=== PATIENT | male | born 1975 | race Caucasian/White ===

== ENCOUNTER 2018-12-21 15:44 | Inpatient (IN) ==
[2018-12-21] MEDS ORDERED: SALINE LOCK IV FLUID XX ONE (22:41)
[2018-12-21] MEDS ORDERED: VANCOMYCIN IV PER PHARMACY MISC SCH (22:45)
[2018-12-21 23:42] LABS: HEMATOCRIT 36.5 % (42.0-52.0); HEMOGLOBIN 12.8 g/dL (14.0-18.0); MCH 33.9 PG (27-31); MCHC 35.1 g/dL (33-37); MCV 96.6 FL (81-99); RBC 3.78 XMIL (4.7-6.1); RDW 12.1 % (11.5-14.5); WBC 6.45 X1000 (4.8-10.8)
[2018-12-21 23:43] LABS: BASO# 0.01 X1000 (0.0-0.2); BASO% 0.2 % (0.0-0.8); EOS# 0.23 X1000 (0.0-0.7); EOS% 3.6 % (0.0-10.0); LYMPH# 1.82 X1000 (1.2-3.4); LYMPH% 28.2 % (20.5-51.1); MONO# 0.89 X1000 (0.11-0.59); MONO% 13.8 % (1.7-9.3); MPV 10.1 FL (7.4-10.4); NEUT% 54.2 % (42.2-75.2); PLT 182 X1000 (130-400)
[2018-12-22 00:03] LABS: AGAP 11; ALB/GLOB RATIO 1.6; ALBUMIN 3.9 g/dL (3.5-5.0); ALKALINE PHOSPHATASE 81 U/L (32-122); BUN 19 mg/dL (8-22); CHLORIDE 99 mmol/L (98-107); COSMO 276; CREATININE 0.8 mg/dL (0.7-1.2); ESTIMATED GFR > 60; GLUCOSE 104 mg/dL (70-104); GOT 10 U/L (10-34); GPT 13 U/L (10-44); POTASSIUM 4.2 mmol/L (3.5-5.1); SODIUM 137 mmol/L (136-145); TCO2 27 mmol/L (25-35); TOTAL BILIRUBIN 0.41 mg/dL (0.20-1.00); TOTAL PROTEIN 6.3 g/dL (6.3-8.3)
[2018-12-22] MEDS: ZOSYN 3.375 GM in NS 50 ML IV SCH ×3 (00:08→10:13)
[2018-12-22] MEDS ORDERED: VANCOMYCIN 2,000 MG in NS 500 ML IV ONE (01:00)
[2018-12-22] MEDS: NORCO-5 PO PRN ×2 (04:43→10:17)
[2018-12-22 08:36] VITALS: BP 101/83
--- NOTE | 2018-12-22 09:39 | PROGRESS NOTE ---
DATE: 12/22/2018 SUBJECTIVE: Mr. Ashley is a 43-year-old white gentleman, had crushing injury to several toes on the left side. The skin is turning black now and he has cellulitis. PLAN: We will continue the IV antibiotics, get a surgical consult for the injuries on the toes. cc: Zenon Stout MD
--- NOTE | 2018-12-22 10:01 | HISTORY AND PHYSICAL ---
HISTORY: Mr. Ashley on December 17 Dr. Olson related injury on his left foot. He had lacerations on several toes. He was seen in the emergency room at that particular day. X-rays were negative for fractures. He was prescribed clindamycin. It continued to get worse. I saw him yesterday in the office, had significant cellulitis hence he his admit. PAST SURGICAL HISTORY: Reveals history of back surgery. Appendicectomy. Surgery for GERD and hiatal hernia. He also had right ankle surgery. PERSONAL HISTORY: He has history of alcohol dependence as well as drug dependence. He has used illegal drugs in the past. However, at present, he says he is not using anything. No pain medication. ALLERGIES: He has an allergy to moxifloxacin . REVIEW OF SYSTEMS: He has swelling and pain in the left foot and the left toes. PHYSICAL EXAMINATION: Patient is alert. VITAL SIGNS: Temperature normal, pulse 84 per minute, respiratory rate 18 per minute, blood pressure 101/83. HEENT: Head normocephalic, pupils PERRLA. Fundus examination normal. NECK: Supple JVP normal ENT: ENT examination unremarkable. There is no evidence of lymphadenopathy, thyroid enlargement, pedal edema, calf tenderness, anemia, cyanosis or clubbing. PMI in the normal position. EXTREMITIES: Pedal pulses well felt. He has edema with the redness and swelling on the left foot with crushing injury on the left multiple toes with some black tissue, necrotic tissues. HEART: Sounds normal. No murmur gallop or rub noted. LUNGS: Clear. ABDOMEN: Soft, nondistended. Hernial orifices normal. No guarding, rigidity, free fluid, masses, or organomegaly. Bowel sounds normal. RECTAL: Deferred. [employer]: Cranial nerves motor and sensory system examination unremarkable. Deep tendon reflexes normal. Plantars downgoing. Skull and spine examination normal for age. No cerebellar signs or signs of meningeal irritation. Sensory and motor system unremarkable. CLINICAL IMPRESSION: Severe cellulitis following injury to multiple toes. Cellulitis is affecting the toes as well as the left foot. I will give him vancomycin and Zosyn at the present time. We will get a surgical consult for further management. cc: Zenon Stout MD
[2018-12-22] MEDS ORDERED: VANCOMYCIN 1,500 MG in NS 250 ML IV SCH (13:00)
--- NOTE | 2018-12-22 23:24 | DISCHARGE SUMMARY ---
ADMISSION DATE: 12/21/2018 DISCHARGE DATE: 12/22/2018 HOSPITAL COURSE: Mr. Ashley, who is a 43-year-old white gentleman, had some crushing injury to the left toes and cellulitis on the left foot. He was admitted. His initial foot x-ray was negative for fracture or dislocation. He had cellulitis. Culture studies were performed; however, IV vancomycin and IV Zosyn were started. Wound care consult was also obtained. The foot was elevated. He was doing better. This morning we decided to get a surgical consult with Dr. Sultana also, as the skin around the toes became darker; however, around lunchtime he decided to sign out. We cautioned him about that twice; however, he decided to go home. FINAL DIAGNOSIS: Cellulitis left foot, with crushing injury to the toes. cc: Zenon Stout MD
== END 2018-12-22 12:08 | disposition left against medical advice (07) | DRG 603 ==
LOC: DIRADM 15:44 → 4N 15:52
PROVIDERS: ADMIT Internal Medicine; ATTEND Internal Medicine